=== PATIENT | female | born 1995 | race Two or more races ===

== ENCOUNTER 2021-07-06 12:48 | Inpatient (IN) | payer OTHER ==
[~2021-07-06] VITALS: Ht 170.2 cm; Wt 62.1 kg
[2021-07-06] MEDS ORDERED: HYDREA500 M1 PO (13:03)
[2021-07-06] MEDS ORDERED: ONDANSETRON ODT4 MG PO (13:04)
[2021-07-06] MEDS ORDERED: FOLIC ACID0.8 M1 PO (13:04)
[2021-07-06] MEDS ORDERED: OXYCODONE HCL5 M1 PO (13:04)
== END 2021-07-09 18:38 | DRG 812 ==
LOC: ER 12:48 → MEDI 07-07 09:54
PROVIDERS: ADMIT Internal Medicine; ATTEND Internal Medicine
PROC: 30233N1 Transfusion of Nonautologous Red Blood Cells into Peripheral Vein, Percutaneous Approach (ICD-10-PCS; principal; 2021-07-07)
PROC: 02HV33Z Insertion of Infusion Device into Superior Vena Cava, Percutaneous Approach (ICD-10-PCS; 2021-07-07)
PROC: BW25ZZZ Computerized Tomography (CT Scan) of Chest, Abdomen and Pelvis (ICD-10-PCS; 2021-07-07)
DX: D64.9 Anemia, unspecified (principal); D57.00 Hb-SS disease with crisis, unspecified; R65.10 Systemic inflammatory response syndrome (SIRS) of non-infectious origin without acute organ dysfunction; D72.828 Other elevated white blood cell count; Z20.822 Contact with and (suspected) exposure to COVID-19